=== PATIENT | female | born 1980 | race Caucasian/White ===

== ENCOUNTER 2017-01-03 02:27 | Emergency (ER) | payer MEDICAID, OTHER ==
[2017-01-03 02:42] VITALS: BP 145/96; PULSE 76; RESP 18; TEMP 96.8; O2SAT 99
--- NOTE | 2017-01-03 03:23 | ED PDOC ---
HPI: General Adult Time Seen by Provider: 01/03/17 02:36 Chief Complaint (Nursing): Weakness/Neurological Deficit Chief Complaint (Provider): Left sided facial numbness History Per: Patient History/Exam Limitations: no limitations Onset/Duration Of Symptoms: Days (1 week) Have you had recent travel within the past 21 days to any of the following countries: [place], [place], [place] or [place]?: No Current Symptoms Are (Timing): Still Present Severity: Moderate Additional History Per: Patient Additional Complaint(s): The pt is a 36yo female, presents to the ED for evaluation of left sided facial numbness with associated oral numbness for the past 7 days. Pt reports 1 week ago, she noticed changes in her taste and experienced some numbness in her tongue and mouth. States today she noticed some left sided facial droop along with drooling. Pt denies any other facial numbness or headache. Additionally, pt denies any arm or leg numbness bilaterally, dizziness or vision changes. of note, pt states 1 week ago she had some left posterior auricular pain. At present, she offers no additional medical complaints. Past Medical History Reviewed: Historical Data, Nursing Documentation, Vital Signs Vital Signs: Last Vital Signs Temp 96.8 F L 01/03/17 02:37 Pulse 76 01/03/17 02:37 Resp 18 01/03/17 02:37 BP 145/96 H 01/03/17 02:37 Pulse Ox 99 01/03/17 03:29 - Medical History PMH: No Chronic Diseases - Surgical History Surgical History: No Surg Hx - Family History Family History: States: Unknown Family Hx - Allergies Allergies/Adverse Reactions: Allergies Allergy/AdvReac Type Severity Reaction Status Date / Time Penicillins Allergy RASH Verified 01/03/17 02:37 Review of Systems ROS Statement: Except As Marked, All Systems Reviewed And Found Negative ENT: Positive for: Other (left sided auricular pain 1 week ago). Negative for: Ear Pain Musculoskeletal: Negative for: Other (no arm or leg weakness) Neurological: Positive for: Numbness (left sided facial numbness, ) Physical Exam - Reviewed Nursing Documentation Reviewed: Yes Vital Signs Reviewed: Yes - Physical Exam Appears: Positive for: Well, Non-toxic, No Acute Distress Head Exam: Positive for: ATRAUMATIC, NORMAL INSPECTION, NORMOCEPHALIC Skin: Positive for: Normal Color Eye Exam: Positive for: Normal appearance, EOMI, PERRL ENT: Positive for: Normal ENT Inspection Neck: Positive for: Normal, Supple Cardiovascular/Chest: Positive for: Regular Rate, Rhythm Respiratory: Positive for: Normal Breath Sounds. 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 weakness of ocular muscle, poor eyelid closure.), Oriented, Facial Droop (left sided) - ECG O2 Sat by Pulse Oximetry: 99 (RA) Pulse Ox Interpretation: Normal Medical Decision Making Medical Decision Making: Time: 250 Impression: Kingfisher palsy Plan: -- Prednisone 60 mg PO --Reassess Scribe Attestation: Documented by Marilyn Murillo acting as a scribe for Patric Aleman MD. Provider Attestation: All medical record entries made by the Scribe were at my direction and personally dictated by me. I have reviewed the chart and agree that the record accurately reflects my personal performance of the history, physical exam, medical decision making, and the department course for this patient. I have also personally directed, reviewed, and agree with the discharge instructions and disposition. Disposition - Clinical Impression Clinical Impression: Sequeira's palsy - Patient ED Disposition Is Patient to be Admitted: No Doctor Will See Patient In The: Office Counseled Patient/Family Regarding: Studies Performed, Diagnosis, Need For Followup - Disposition Referrals: [facility] [Outside] Carlos Cruz MD [Staff Provider] - Patricio Bryant MD [Staff Provider] - Wei Mancuso MD [Staff Provider] - Disposition: Routine/Home Disposition Time: 03:32 Condition: GOOD Additional Instructions: Follow up with your PCP in 2-3 days. Take medications as instructed. Instructions: Sequeira Palsy (ED)
== END 2017-01-03 03:50 | disposition home or self-care (01) ==
LOC: H.ER 02:27
DX: G51.0 Bell's palsy (principal); R29.810 Facial weakness; R20.0 Anesthesia of skin

== ENCOUNTER 2017-11-29 16:59 | Emergency (ER) | payer MEDICAID ==
[2017-11-29 17:44] VITALS: TEMP 98.3; O2SAT 100
[2017-11-29] MEDS ORDERED: Sodium Chloride 0.9% 1,000 ML IV STA (18:44)
[2017-11-29 19:16] LABS: BASO % 0.8 % (0.0-2.0); EOS # 0.1 K/uL (0.0-0.7); EOS % 2.1 % (0.0-4.0); HEMOGLOBIN 14.1 g/dL (12.0-16.0); LYMPH # 1.5 K/uL (1.0-4.3); LYMPH % 24.3 % (20.0-40.0); MEAN CELL VOLUME 87.5 fl (81.0-99.0); MEAN CORPUSCULAR HEMOGLOBIN 29.4 pg (27.0-31.0); MEAN CORPUSCULAR HGB CONC 33.6 g/dL (33.0-37.0); MONO # 0.5 K/uL (0.0-0.8); MONO % 7.2 % (0.0-10.0); NEUT # 4.1 K/uL (1.8-7.0); NEUT % 65.6 % (50.0-75.0); RBC 4.78 Mil/uL (3.80-5.20); RED CELL DISTRIBUTION WIDTH 13.9 % (11.5-14.5); WHITE BLOOD COUNT 6.3 K/uL (4.8-10.8)
--- NOTE | 2017-11-29 19:19 | ED PDOC ---
HPI: General Adult Time Seen by Provider: 11/29/17 18:00 Chief Complaint (Nursing): Headache History Per: Patient Additional Complaint(s): Pt. states for the past 6 months she's had an intermittent R sided occipital headache associated with light sensitivity, nausea (no vomiting), "stuttering," memory loss. States she was initially evaluated by her PMD, Dr. Dove who had multiple blood tests done all of which were normal. States she was treated for a sinus infection with antibiotics but no relief in pain. Denies trauma, numbness, tingling, fever, sudden onset of headache, neck pain. Past Medical History Reviewed: Historical Data, Nursing Documentation, Vital Signs Vital Signs: Last Vital Signs Temp 98.3 F 11/29/17 17:41 Pulse 64 11/29/17 19:35 Resp 20 11/29/17 19:35 BP 109/67 11/29/17 19:35 Pulse Ox 100 11/29/17 19:35 - Surgical History Surgical History: No Surg Hx - Family History Family History: States: No Known Family Hx - Home Medications Home Medications: Ambulatory Orders Medication Instructions Recorded Acyclovir [Zovirax] 800 mg PO 5XD #35 tablet 01/03/17 Glycerin/Propylene Glycol 2 drop OS Q4 #30 ml 01/03/17 [Artificial Tears Drops] Prednisone [Deltasone] 20 mg PO DAILY #20 tablet 01/03/17 Metoclopramide [Reglan] 10 mg PO TID PRN #15 tab 11/29/17 - Allergies Allergies/Adverse Reactions: Allergies Allergy/AdvReac Type Severity Reaction Status Date / Time Penicillins Allergy RASH Verified 01/03/17 02:37 Review of Systems ROS Statement: Except As Marked, All Systems Reviewed And Found Negative Gastrointestinal: Positive for: Nausea Neurological: Positive for: Headache Physical Exam - Physical Exam Appears: Positive for: Well, Non-toxic, No Acute Distress Head Exam: Positive for: ATRAUMATIC, NORMAL INSPECTION, NORMOCEPHALIC Skin: Positive for: Normal Color, Warm. Negative for: Rash Eye Exam: Positive for: EOMI, Normal appearance, PERRL ENT: Positive for: Normal ENT Inspection Neck: Positive for: Normal, Painless ROM Cardiovascular/Chest: Positive for: Regular Rate, Rhythm Respiratory: Positive for: CNT, Normal Breath Sounds Gastrointestinal/Abdominal: Positive for: Normal Exam, Soft. Negative for: Tenderness Back: Positive for: Normal Inspection. Negative for: L CVA Tenderness, R CVA Tenderness Extremity: Positive for: Normal ROM Neurologic/Psych: Positive for: Alert, Oriented - Laboratory Results Result Diagrams: 11/29/17 19:09 11/29/17 19:09 - ECG O2 Sat by Pulse Oximetry: 100 - Progress ED Course And Treament: Labs, CT head w/o contrast, reglan 10mg IV, IV NS bolus x 1 ordered. 2048 On re-evaluation, pt. reports good relief of headache. Repeat neuro exam is non-focal. Disposition - Clinical Impression Clinical Impression: Acute headache - Patient ED Disposition Is Patient to be Admitted: No - Disposition Referrals: Matthew Lopes MD [Medical Doctor] - [facility] [Outside] Disposition: Routine/Home Disposition Time: 20:51 Condition: IMPROVED Prescriptions: Metoclopramide [Reglan] 10 mg PO TID PRN #15 tab PRN Reason: nausea or headache Instructions: Acute Headache (ED) Forms: [facility] ([place]) Print Language: BENINESE
[2017-11-29 19:40] LABS: ALB/GLOB RATIO 1.1 (1.0-2.1); ALBUMIN 4.1 g/dL (3.5-5.0); ALT/SGPT 40 U/L (9-52); AST/SGOT 32 U/L (14-36); BLOOD UREA NITROGEN 12 mg/dl (7-17); CALCIUM 9.6 mg/dL (8.4-10.2); GFR AFRICAN-AMERICAN > 60; GFR NON-AFRICAN AMERICAN > 60
--- NOTE | 2017-11-29 20:19 | CT ---
EXAM: CT Head Without Intravenous Contrast EXAM DATE/TIME: 11/29/2017 6:44 PM CLINICAL HISTORY: 37 years old, female; Pain; Headache; Headache not specified TECHNIQUE: Axial computed tomography images of the head/brain without intravenous contrast. All CT scans at this facility use one or more dose reduction techniques, viz.: automated exposure control; ma/kV adjustment per patient size (including targeted exams where dose is matched to indication; i.e. head); or iterative reconstruction technique. Coronal and sagittal reformatted images were created and reviewed. COMPARISON: Prior head CT of 2009-03-07 FINDINGS: BRAIN: No significant acute abnormality identified. No acute hemorrhage seen within the brain. No acute extra-axial fluid collections visualized. No evidence of significant mass effect within the brain. VENTRICLES: No evidence of significant hydrocephalus. BONES/JOINTS: No acute fractures or other acute bony abnormality noted. SOFT TISSUES: No acute abnormality of the visualized soft tissues is seen. SINUSES: Visualized paranasal sinuses appear clear. MASTOID AIR CELLS: Mastoid air cells appear clear. IMPRESSION: - No acute findings seen within the brain. - See above for remaining findings.
[2017-11-29 20:25] VITALS: BP 109/67; PULSE 64; RESP 20
== END 2017-11-29 21:13 | disposition home or self-care (01) ==
LOC: H.ER 16:59
DX: R51 Headache (principal)
CPT/HCPCS: 70450; 80053; 81025; 85025; 96361; 96374; 99285; J2765; J7040